=== PATIENT | male | born 1980 | race African-American/Black ===

== ENCOUNTER → 2021-04-13 | Outpatient (CLI) | payer OTHER ==
[~2021-04-13] MED LIST: AUGMENTIN 875 M1 TAB PO; CLARITIN10 MG PO
== END | disposition home or self-care (01) ==
LOC: CARD 01:24
PROVIDERS: ATTEND Internal Medicine
DX: R07.2 Precordial pain (principal)

== ENCOUNTER → 2021-05-31 | Outpatient (CLI) | payer OTHER | END | disposition home or self-care (01) | LOC: US 08:30 | PROVIDERS: ATTEND Internal Medicine | DX: R07.2 Precordial pain (principal); R10.11 Right upper quadrant pain ==